=== PATIENT | female | born 2000 | race Caucasian/White ===

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

== ENCOUNTER 2020-04-28 21:36 | Emergency (ER) | payer OTHER ==
[~2020-04-28] VITALS: Ht 167.6 cm; Wt 65.8 kg
[2020-04-28] MEDS ORDERED: FLONASE ALLERG9.9 ML NAS (21:49)
== END 2020-04-28 23:28 | disposition home or self-care (01) ==
LOC: ED 21:36
DX: R07.9 Chest pain, unspecified (principal); R22.0 Localized swelling, mass and lump, head; T49.0X5A Adverse effect of local antifungal, anti-infective and anti-inflammatory drugs, initial encounter; Z91.09 Other allergy status, other than to drugs and biological substances; Z88.8 Allergy status to other drugs, medicaments and biological substances; Z88.2 Allergy status to sulfonamides
CPT/HCPCS: 99283

== ENCOUNTER 2023-04-26 15:40 | Emergency (ER) | payer OTHER ==
[~2023-04-26] VITALS: Ht 167.6 cm; Wt 58.9 kg
[~2023-04-26 15:40] MED LIST changes: +CEPHALEXIN500 M1 PO; +FLONASE ALLERG9.9 ML NAS
[2023-04-26 19:02] VITALS: BP 138/86
== END 2023-04-26 19:02 | disposition home or self-care (01) ==
LOC: ED 15:40
DX: R10.32 Left lower quadrant pain (principal); G89.29 Other chronic pain; Z88.8 Allergy status to other drugs, medicaments and biological substances; Z79.890 Hormone replacement therapy
CPT/HCPCS: 74022; 80053; 81003; 83690; 84703; 85025; 96372; 99284-25; J1885

== ENCOUNTER 2023-06-25 08:33 | Day surgery (SDC) | payer OTHER ==
[2023-06-20 15:10] VITALS: BP 126/79
[~2023-06-25] VITALS: Ht 167.6 cm; Wt 59.1 kg
[~2023-06-25 08:33] MED LIST changes: +AMITRIPTYLINE H10 MG PO; +FLONASE ALLERG9.9 ML; +PANTOPRAZOLE SO20 MG PO; +ZYRTEC10 MG PO
[2023-06-25 08:53] VITALS: BP 115/73
[2023-06-25 10:25] VITALS: BP 135/90
[2023-06-25 11:30] VITALS: BP 124/82
--- NOTE | 2023-06-25 11:46 | OR ---
[facility] [address], [place] [address] Signed DATE OF OPERATION: 06/25/2023 SURGEON: Matthew Pino MD PREOPERATIVE DIAGNOSIS: Inferior turbinate hypertrophy. POSTOPERATIVE DIAGNOSIS: Inferior turbinate hypertrophy. PROCEDURE: Cautery bilateral inferior turbinates, submucosal. ANESTHESIA: General, LMA, TATTOO IDENTIFIER, Piyush. PREOPERATIVE HISTORY: Julia is a 22-year-old young lady with a long history of facial discomfort, congestion, normal sinus CT, but noted to have inferior turbinate hypertrophy, unresponsive to appropriate medications and other treatments and she is taken to the operating for the above-mentioned procedures. OPERATIVE PROCEDURE AND FINDINGS: After informed consent, the patient was taken to the operating room, placed in the supine position where general LMA anesthesia was induced. The patient and procedure were verified. The patient received preoperative intranasal oxymetazoline and intravenous Ancef. Headlight speculum exam of the nasal cavity showed clear nasal passages, good decongestion of the inferior turbinates. Septum was midline, nonobstructive. The left inferior turbinate was then approached initially with a long handle needle point cautery. Multiple transmucosal passes with the cautery on the medial and inferior surface of the inferior turbinate starting anteriorly extending all the way back posteriorly. Excellent decongestion and shrinkage of the turbinate was obtained. Minimal bleeding stopped afterwards. The same procedure on the right inferior turbinate. Packing was then placed, trimmed Merocel equal amount one piece each side, tied anteriorly over a pad. The pharynx was suctioned clear of blood and secretions. The patient was then awakened, extubated, transported to the recovery room in good condition. No complications. BLOOD LOSS: Minimal. Electronically Signed By: MATTHEW PINO MD 06/25/23 1146 PATIENT NAME: JULIA CHURCH OPERATIVE REPORT DATE OF : 00 REPORT #: [id number] PHYSICIAN: MATTHEW PINO MD PCP: RATNA RACHEL MD REPORT IS CONFIDENTIAL AND NOT TO BE RELEASED WITHOUT AUTHORIZATION [facility] [address], [place] [address] Signed SPECIMEN: No specimen. DRAINS: No drains. PACKING: One piece of Merocel each nostril. Matthew Pino MD GC/MODL /[id number] Copies: ~ Electronically Signed By: MATTHEW PINO MD 06/25/23 1146 PATIENT NAME: JULIA CHURCH OPERATIVE REPORT DATE OF : 00 REPORT #: [id number] PHYSICIAN: MATTHEW PINO MD PCP: RATNA RACHEL MD REPORT IS CONFIDENTIAL AND NOT TO BE RELEASED WITHOUT AUTHORIZATION
== END 2023-06-25 11:50 | disposition home or self-care (01) ==
LOC: OPS 08:33 → DS 08:33 → OPS 09:30 → DS 09:30 → OPS 11:50
PROVIDERS: ATTEND Otolaryngology
PROC: 095L7ZZ Destruction of Nasal Turbinate, Via Natural or Artificial Opening (ICD-10-PCS; principal; 2023-06-25 09:30)
DX: J34.3 Hypertrophy of nasal turbinates (principal)
CPT/HCPCS: 00160; A9270; J0131; J0690; J1100; J2250; J2405; J2704; J3010; J7121